=== PATIENT | male | born 1980 | race Caucasian/White ===

== ENCOUNTER 2017-11-02 17:30 | Outpatient (RCR) | payer BC, SELFPAY ==
--- NOTE | 2018-01-20 14:57 | HP.PT.NRP ---
HP - Discharge Summary (1) - Patient Information LITA DELGADO was seen in my office for initial evaluation on 10/16/17. The following Plan of Care was established for this patient: Initial Frequency: 2x /Week Initial Duration: 4 Weeks - Anticipated Interventions Patient/Client Instruction: Educate patient on: Condition, Plan of Care For the Purpose of:: To decrease pain, To increase ROM, To improve muscle performance and motor function, To improve ability of physical actions for home/community/work/leisure, To increase flexibility/ROM, To improve endurance Therapeutic Exercise to Include: Strength training, Endurance training, Body mechanics, Postural training, Flexibilty training, Passive ROM, Active ROM, Scapular Strength/Stabilization For the Purpose of:: To decrease pain, To increase ROM, To improve ability of physical actions for home/community/work/leisure, To increase flexibility/ROM, To improve endurance Functional Training to Include: ADL Training, Functional sports training For the Purpose of:: To decrease pain, To increase ROM, To improve muscle performance and motor function, To improve ability of physical actions for home/community/work/leisure Manual Therapy Techniques to Include: Mobilization, Manipulation, Passive ROM, Soft tissue mobilization Comment: MASSAGE NOT COVERED For the Purpose of:: To decrease pain, To increase ROM, To increase flexibility/ROM Iontophoresis (with Dexamethozone, with Acetic acid): No TENS: Yes Ultrasound (thermal/non thermal): Yes Intermittent cervical traction: Yes Pelvic traction supine: Yes Comment: TAPING For the Purpose of:: To decrease pain, To increase ROM, To decrease soft tissue restriction This patient was last seen in our office 11/02/17. Pertinent comments regarding their Physical therapy will appear below: Patient seen for PT for neck and back pain with treatment focusing on manual therapy ,modlaties for pain releive ,posture ex's ,and patient education,thus is d/c after 4 visits. At this point I will be discontinuing this patient from physical therapy. I would be happy to see this patient again in the future if found appropriate by the physician. Thank you! Raheem Montana, PT,
== END 2017-11-02 19:00 | disposition home or self-care (01) ==
LOC: PT 17:30
PROVIDERS: Visit Provider Anesthesiology Pain Medicine
DX: M54.2 Cervicalgia (principal); M54.9 Dorsalgia, unspecified
CPT/HCPCS: 97012; 97035; 97110; 97140; 97162

== ENCOUNTER → 2017-11-25 14:21 | Outpatient (CLI) | payer BC, SELFPAY | PROVIDERS: Visit Provider Otolaryngology | DX: J32.9 Chronic sinusitis, unspecified (principal) | CPT/HCPCS: 87070; 87205 ==